=== PATIENT | male | born 1995 | race Caucasian/White ===

== ENCOUNTER 2017-07-12 14:50 | Emergency (ER) | payer BC, OTHER ==
[2017-07-12 14:58] VITALS: BP 152/70
[2017-07-12] MEDS ORDERED: Penicillin V Potassium 500 MG Tab PO ONE (15:12)
--- NOTE | 2017-07-12 15:19 | EDM.PDOC ---
ED HPI GENERAL MEDICAL PROBLEM - General Chief Complaint: ENT Problem Stated Complaint: TOOTHACHE Time Seen by Provider: 07/12/17 15:06 Source of Information: Reports: Patient History Limitations: Reports: No Limitations - History of Present Illness INITIAL COMMENTS - FREE TEXT/NARRATIVE: Patient is a 21-year-old male presents ED complaining of right upper molar discomfort. States started approximately one month ago has been waxing waning since. States as of recent the pain is more chronic and more severe. He has an appointment with the dentist scheduled for this coming Friday. Has been utilizing Aleve and also ibuprofen with intermittent relief. There's been no gumline swelling and/or drainage. He's had no sinus congestion or runny nose. Pain is worsen with eating and drinking on the affected side. There's been no documented fever or difficulty swallowing. He has no additional past medical history and currently taking no prescription medications. He does not smoke. Alcohol use is social. Denies recreational drug use. Right Upper Oral/Mouth Pain Score (Numeric/FACES): 10 - Related Data Allergies Allergy/AdvReac Type Severity Reaction Status Date / Time No Known Allergies Allergy Verified 07/12/17 14:58 Home Meds: Home Meds Penicillin V Potassium [IJP: Penicillin V Potassium] 500 mg PO .EVERY 6 HOURS # 40 tab 07/12/17 [Rx] Past Medical History - Past Health History Medical/Surgical History: Denies Medical/Surgical History Social & Family History - Family History Family Medical History: Noncontributory - Tobacco Use Smoking Status *Q: Never Smoker Second Hand Smoke Exposure: No - Caffeine Use Caffeine Use: Reports: Coffee - Recreational Drug Use Recreational Drug Use: No ED ROS ENT - Review of Systems Review Of Systems: ROS reveals no pertinent complaints other than HPI. ED EXAM, ENT - Physical Exam Exam: See Below Exam Limited By: No Limitations General Appearance: Alert, WD/WN, No Apparent Distress Ears: Hearing Grossly Normal Nose: Normal Inspection Mouth/Throat: Normal Gums, Normal Lips, Dental Tenderness (#32 tooth. Portion of it is fractured off. No gumline swelling or drainage noted.). No: Drooling, Dry Mucous Membrane, Lip Swelling, Pharyngeal Erythema, Throat Pain, Tongue Swelling, Tonsillar Erythema, Tonsillar Exudates, Tonsillar Swelling, Trismus, Uvular Deviation Course - Vital Signs Last Recorded V/S: Last Vital Signs Temp 98.4 F 07/12/17 14:55 Pulse 82 07/12/17 14:55 Resp 12 07/12/17 14:55 BP 152/70 H 07/12/17 14:55 Pulse Ox 98 07/12/17 14:55 - Orders/Labs/Meds Meds: Medications Discontinued Medications Generic Name Dose Route Start Last Admin Trade Name Donte PRN Reason Stop Dose Admin Bupivacaine HCl 10 ml 07/12/17 15:32 Sensorcaine-Mpf 0.5% INJECT 07/12/17 15:33 ONETIME ONE Penicillin V Potassium 500 mg 07/12/17 15:12 07/12/17 15:20 Veetids PO 07/12/17 15:13 500 mg ONETIME ONE Administration - Re-Assessments/Exams Free Text/Narrative Re-Assessment/Exam: Order penicillin 500 mg by mouth. Performed superior alveolar nerve dental block with 2 mL of bupivacaine with complete resolution of discomfort. Will discharge patient home with instructions as documented. Departure - Departure Time of Disposition: 15:18 Disposition: Home, Self-Care 01 Condition: Good Clinical Impression: Dental caries, Dental caries extending into dentin Fracture of tooth Qualifiers: Encounter type: initial encounter Fracture type: closed Qualified Code(s): S02.5XXA - Fracture of tooth (traumatic), initial encounter for closed fracture - Discharge Information Prescriptions: Penicillin V Potassium [IJP: Penicillin V Potassium] 500 mg PO .EVERY 6 HOURS # 40 tab Referrals: PCP,None [Primary Care Provider] - Forms: ED Department Discharge Additional Instructions: Take ibuprofen 600 mg every 6 hours and Tylenol 650 mg every 6 hours in alternating fashion for pain. Refrain from chewing on the affected side. May use a [id number] fake filling to decrease any pain. Continue using oral gel and also Anbesol as needed. Sleep in upright position. See Dentist as scheduled. Take the full course of penicillin as prescribed. May apply warm compresses and/or ice to affected area as well. Return to the ED if you develop any new or worsening symptoms.
[2017-07-12] MEDS ORDERED: Bupivacaine 0.5% 10 ML SDV INJECT ONE (15:32)
== END 2017-07-12 15:55 | disposition home or self-care (01) ==
LOC: JD.ED 14:50
DX: K02.9 Dental caries, unspecified (principal); K03.81 Cracked tooth
CPT/HCPCS: 64400; 99283; A9270

== ENCOUNTER 2022-06-11 14:41 | Emergency (ER) | payer BC, OTHER ==
[2022-06-11 15:03] VITALS: PULSE 93
[2022-06-11] MEDS ORDERED: HYDROmorphone 1 MG/ML Syringe IVPUSH STA (15:22)
[2022-06-11] MEDS ORDERED: Ondansetron 4 MG/2 ML SDV IVPUSH ONE (15:22)
[2022-06-11] MEDS ORDERED: Sodium Chloride 0.9% 1,000 ML IV SCH (15:30)
[2022-06-11] MEDS ORDERED: Iopamidol 612 MG/ML 50 ML SDV IVPUSH ONE (15:59)
[2022-06-11] MEDS ORDERED: Sodium Chloride 0.9% 10 ML Syringe FLUSH ONE (15:59)
[2022-06-11] MEDS ORDERED: Iopamidol 612 MG/ML 100 ML Bottle IVPUSH ONE (15:59)
[2022-06-11] MEDS ORDERED: Sulfamethoxazole/Trimethoprim 800-160 MG Tab PO STA (17:07)
[2022-06-11 19:34] VITALS: BP 138/87
== END 2022-06-11 17:56 | disposition home or self-care (01) ==
LOC: JD.ED 14:41
DX: L03.314 Cellulitis of groin (principal)
CPT/HCPCS: 36415; 74177; 80053; 85007; 85027; 96361; 96374; 96375; 99284; A9270; J1170; J2405; J3490; J7030; Q9967; 99283

== ENCOUNTER 2022-06-14 10:31 | Day surgery (SDC) | payer BC ==
[2022-06-14] MEDS ORDERED: Bupivacaine 0.5% 10 ML SDV ONE (10:42)
[2022-06-14] MEDS ORDERED: Lidocaine 1% with EPINEPHrine 1:100,000 20 ML MDV ONE (10:43)
[2022-06-14] MEDS ORDERED: Sodium Chloride 0.9% 10 ML Syringe FLUSH PRN (11:06)
[2022-06-14] MEDS ORDERED: Lidocaine 1%/Sod Bicarbonate in NS 8.4% 1 ML Syringe IDERM PRN (11:06)
[2022-06-14] MEDS ORDERED: Lactated Ringers 1,000 ML IV SCH (11:15)
[2022-06-14] MEDS ORDERED: Propofol 200 MG/20 ML SDV ONE ×2 (11:46→12:12)
[2022-06-14] MEDS ORDERED: fentaNYL 100 MCG/2 ML SDV ONE (11:47)
[2022-06-14] MEDS ORDERED: Midazolam 1 MG/ML 2 ML SDV ONE (11:51)
[2022-06-14] MEDS ORDERED: ceFAZolin 2 GM Vial ONE (12:00)
[2022-06-14] MEDS ORDERED: Ondansetron 4 MG/2 ML SDV ONE ×2 (12:30→12:32)
[2022-06-14] MEDS ORDERED: Dexamethasone 4 MG/ML 5 ML MDV ONE ×2 (12:30→12:32)
[2022-06-14] MEDS ORDERED: HYDROmorphone 0.5 MG/0.5 ML Syringe ONE ×2 (12:33→12:36)
[2022-06-14] MEDS ORDERED: fentaNYL 100 MCG/2 ML SDV IVPUSH PRN (12:51)
[2022-06-14] MEDS ORDERED: Ondansetron 4 MG/2 ML SDV IVPUSH PRN (12:51)
[2022-06-14] MEDS ORDERED: HYDROmorphone 0.5 MG/0.5 ML Syringe IVPUSH PRN (12:51)
[2022-06-14] MEDS ORDERED: Meperidine 50 MG/ML Vial IVPUSH PRN (12:52)
[2022-06-14] MEDS ORDERED: Acetaminophen/HYDROcodone 325-5 MG Tab PO ONE (15:00)
[2022-06-14 15:04] VITALS: BP 136/72; PULSE 76
== END 2022-06-14 15:05 | disposition home or self-care (01) ==
LOC: JD.SDS 10:31
PROVIDERS: ATTEND Surgery
DX: L02.214 Cutaneous abscess of groin (principal)
CPT/HCPCS: 10061; 87070; 87075; 87077; 87186; 87205; J0690; J1100; J1170; J2250; J2405; J2704; J3010; J7120; 00400; J3490